=== PATIENT | female | born 1970 | race Caucasian/White ===

== ENCOUNTER 2019-08-14 21:03 | Emergency (ER) | payer OTHER ==
[2019-08-14 21:09] VITALS: BP 145/82; PULSE 67; TEMP 98.2; BMI 37.0
[2019-08-14] MEDS ORDERED: IBUPROFEN 600 MG TABLET (FP) PO ONE ×2 (21:22→21:25)
--- NOTE | 2019-08-14 21:23 | PDOC ---
History of Present Illness - General Chief Complaint: Pain Stated Complaint: FINGER PROBLEM Time Seen by Provider: 08/14/19 21:14 History Source: Patient Exam Limitations: Clinical Condition - History of Present Illness Initial Comments: 08/14/19 21:24 Patient with no significant past medical history present with complaint of pain and swelling to left ring finger due to ring stuck on finger. Patient report moderate pain over area of ring. Patient reported using string technique to remove ring without success. Denies numbness or tingling sensation. Denies any other symptoms. Patient did not take anything for pain Is this a multiple visit Asthma Patient?: No Past History - Past Medical History Allergies/Adverse Reactions: Allergies Allergy/AdvReac Type Severity Reaction Status Date / Time No Known Allergies Allergy Verified 06/13/14 14:29 Home Medications: Ambulatory Orders Ferrous Sulfate [Feosol] 325 mg PO DAILY 06/13/14 Hydrochlorothiazide [Hctz -] 50 mg PO DAILY 06/13/14 Siler-3 Fatty Acids [Fish Oil] 300 mg PO DAILY 06/13/14 Pantoprazole Sodium [Protonix] 40 mg PO DAILY #0 tablet. 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) GI Disorders: No Disorders: No HTN: Yes Hypercholesterolemia: No Liver Disease: No Seizures: No Thyroid Disease: Yes (enlarged thyroid) - Surgical History Abdominal Surgery: No Appendectomy: No Cardiac Surgery: No Cholecystectomy: No Lung Surgery: No Neurologic Surgery: No Orthopedic Surgery: No - Psycho Social/Smoking Cessation Hx Smoking History: Never smoked Hx Alcohol Use: No Drug/Substance Use Hx: No Substance Use Type: None Review of Systems - Review of Systems Able to Perform ROS?: Yes Is the patient limited [place] proficient: No Constitutional: No: Loss of Appetite, Weakness HEENTM: No: Symptoms Reported Respiratory: No: Symptoms reported, Hemoptysis Cardiac (ROS): No: Symptoms Reported Musculoskeletal: Yes: Symptoms Reported, See HPI, Joint Swelling (left ring finger), Muscle Pain (left ring finger) Integumentary: Yes: Symptoms Reported, See HPI, Other (swelling to left ring finger) Neurological: No: Symptoms reported, Paresthesia, Tingling, Dizziness All Other Systems: Reviewed and Negative *Physical Exam - Vital Signs Last Vital Signs Temp Pulse Resp BP Pulse Ox 98.2 F 67 19 145/82 100 08/14/19 21:07 08/14/19 21:07 08/14/19 21:07 08/14/19 21:07 08/14/19 21:07 - Physical Exam General Appearance: Yes: Nourished, Appropriately Dressed, Mild Distress HEENT: positive: Normal ENT Inspection Neck: positive: Supple Respiratory/Chest: negative: Respiratory Distress, Accessory Muscle Use Musculoskeletal: positive: Other (moderate tenderness with mild swelling around embedded ring to left ring finger.) Extremity: positive: Normal Capillary Refill, Normal Range of Motion Integumentary: positive: Normal Color Neurologic: positive: Fully Oriented, Alert, Normal Mood/Affect, Normal Response , Motor Strength 5/5 Medical Decision Making - Medical Decision Making 08/14/19 21:25 Patient with no significant past medical history present with complaint of pain and swelling to left ring finger due to ring stuck on finger. Patient report moderate pain over area of ring. Patient reported using string technique to remove ring without success. Denies numbness or tingling sensation. Denies any other symptoms. Patient did not take anything for pain Exam significant for mild swelling to left ring finger with embedded ring finger. Normal sensory to left ring finger. Ring cut with [employer] ring cutter without complication. Motrin 60 mg p.o. ordered for pain. Cold compress applied to left ring finger. Patient stable for discharge to do cold compress today switch to hot compress tomorrow as needed for swelling with advised to take Motrin as needed for pain with PCP follow-up as needed Discharge - Discharge Information Problems reviewed: Yes Clinical Impression/Diagnosis: Foreign body of left ring finger, Swelling of left ring finger Condition: Stable Disposition: HOME - Admission No - Follow up/Referral - Patient Discharge Instructions Additional Instructions: Take Motrin as needed for pain. Continue with cold compress today to finger as needed to swelling and switch to hot compress tomorrow as needed for swelling. - Post Discharge Activity
== END 2019-08-14 21:31 | disposition home or self-care (01) ==
LOC: JERFT 21:03
DX: S60.445A External constriction of left ring finger, initial encounter (principal); Y93.89 Activity, other specified; W49.04XA Ring or other jewelry causing external constriction, initial encounter; Y92.038 Other place in apartment as the place of occurrence of the external cause; Y99.8 Other external cause status; I10 Essential (primary) hypertension; D64.9 Anemia, unspecified; E04.9 Nontoxic goiter, unspecified; E11.9 Type 2 diabetes mellitus without complications
CPT/HCPCS: 99281-25

== ENCOUNTER 2021-08-09 09:47 | Emergency (ER) | payer OTHER ==
[2021-08-09 10:11] VITALS: BP 140/78; PULSE 78; TEMP 98; BMI 40.0
[2021-08-09] MEDS ORDERED: ACETAMINOPHEN 500 MG TABLET (FP) PO ONE (11:14)
[2021-08-09] MEDS ORDERED: IBUPROFEN 400 MG TABLET (FP) PO ONE ×3 (11:15→11:30)
[2021-08-09] MEDS ORDERED: ACETAMINOPHEN 325 MG TABLET (FP) ONE (11:29)
== END 2021-08-09 12:47 | disposition home or self-care (01) ==
LOC: JER 09:47
DX: S89.92XA Unspecified injury of left lower leg, initial encounter (principal); S99.911A Unspecified injury of right ankle, initial encounter; W01.0XXA Fall on same level from slipping, tripping and stumbling without subsequent striking against object, initial encounter
CPT/HCPCS: 73502-TC-LT-FY; 73552-TC-LT-FY; 73562-TC-LT-FY; 73610-TC-RT-FY; 73630-TC-RT-FY; 99284-25

== ENCOUNTER 2022-04-13 13:28 | Day surgery (SDC) | payer OTHER ==
[2022-04-13] MEDS ORDERED: FERRIC CARBOXYMALTOSE 750 MG in SODIUM CHLORIDE 250 ML IVPB SCH (14:00)
[2022-04-13 15:07] VITALS: BP 142/88; PULSE 70; RESP 18; TEMP 98.3
== END 2022-04-13 15:28 | disposition home or self-care (01) ==
LOC: FINFUSION 13:28 → FM/S 13:29 → FINFUSION 15:28
PROVIDERS: ATTEND Family Medicine
PROC: 3E033GC Introduction of Other Therapeutic Substance into Peripheral Vein, Percutaneous Approach (ICD-10-PCS; principal; 2022-04-13)
DX: D50.9 Iron deficiency anemia, unspecified (principal)
CPT/HCPCS: 81025; 96365; J1439

== ENCOUNTER 2022-04-20 12:02 | Day surgery (SDC) | payer OTHER ==
[2022-04-20 12:53] VITALS: RESP 18; TEMP 97.8
[2022-04-20] MEDS ORDERED: FERRIC CARBOXYMALTOSE 750 MG in SODIUM CHLORIDE 250 ML IVPB SCH (13:00)
[2022-04-20 13:54] VITALS: BP 137/78; PULSE 67
== END 2022-04-20 13:54 | disposition home or self-care (01) ==
LOC: FINFUSION 12:02 → FM/S 12:04 → FINFUSION 13:54
PROVIDERS: ATTEND Family Medicine
PROC: 3E033GC Introduction of Other Therapeutic Substance into Peripheral Vein, Percutaneous Approach (ICD-10-PCS; principal; 2022-04-20)
DX: D50.9 Iron deficiency anemia, unspecified (principal)
CPT/HCPCS: 81025; 96365; J1439

== ENCOUNTER 2023-06-27 09:38 | Emergency (ER) | payer OTHER ==
[2023-06-27 09:51] VITALS: BP 127/81; PULSE 76; RESP 18; TEMP 98.3; BMI 35.7
[2023-06-27] MEDS ORDERED: predniSONE 20 MG TABLET (UD) PO ONE (11:05)
[2023-06-27] MEDS ORDERED: AZITHROMYCIN 500 MG TABLET PO ONE (11:05)
[2023-06-27] MEDS ORDERED: ALBUTEROL SO4 2.5/IPRATROPIUM 0.5 INH SOL 3 ML VIAL.NEB. NEB ONE ×2 (11:06→11:18)
[2023-06-27] MEDS ORDERED: ACETAMINOPHEN 500 MG TABLET (FP) PO ONE (11:06)
[2023-06-27] MEDS ORDERED: ACETAMINOPHEN 500 MG TABLET (FP) ONE (11:18)
[2023-06-27] MEDS ORDERED: predniSONE 20 MG TABLET (UD) ONE (11:18)
[2023-06-27] MEDS ORDERED: AZITHROMYCIN 500 MG TABLET ONE (11:18)
== END 2023-06-27 12:07 | disposition home or self-care (01) ==
LOC: JERFT 09:38
PROC: 3E0F7GC Introduction of Other Therapeutic Substance into Respiratory Tract, Via Natural or Artificial Opening (ICD-10-PCS; principal; 2023-06-27)
DX: R05.9 Cough, unspecified (principal); R09.81 Nasal congestion; R51.9 Headache, unspecified; J40 Bronchitis, not specified as acute or chronic; Z20.822 Contact with and (suspected) exposure to COVID-19
CPT/HCPCS: 0241U-QW; 71046-TC-FY; 93005; 93010; 99285-25